=== PATIENT | female | born 1955 | race Caucasian/White ===

== ENCOUNTER 2019-11-29 08:46 | Outpatient (CLI) | payer OTHER, SELFPAY ==
--- NOTE | ~2019-11-29 | MM_ITS ---
EXAMINATION: MM screening [facility] BI w elio HISTORY: Screening TECHNIQUE: Craniocaudal and mediolateral oblique 3-D tomosynthesis images were obtained and synthetic 2-D images were generated. CAD analysis was submitted and interpreted. COMPARISON: Comparison to multiple prior studies sequentially, with oldest reviewed study dated 03/2015. BREAST PARENCHYMAL COMPOSITION: There are scattered areas of fibroglandular density. FINDINGS: There is no evidence of suspicious mass, calcification, or architectural distortion to sugg est malignancy in either breast. There has been no suspicious interval change. IMPRESSION: 1. No mammographic evidence of malignancy. 2. Recommend routine screening mammography in one year. BI-RADS Category 1: Negative Reviewed, dictated and finalized at location A.
== END 2019-11-29 08:47 | disposition home or self-care (01) ==
LOC: ANHIMG 08:52
DX: Z12.31 Encounter for screening mammogram for malignant neoplasm of breast (principal)
CPT/HCPCS: 77063; 77067

== ENCOUNTER 2020-11-30 09:08 | Outpatient (CLI) | payer MEDICARE, OTHER, SELFPAY ==
--- NOTE | ~2020-11-30 | MM_ITS ---
EXAMINATION: MM screening [facility] BI w elio HISTORY: Screening TECHNIQUE: Craniocaudal and mediolateral oblique 3-D tomosynthesis images were obtained and synthetic 2-D images were generated. CAD analysis was submitted and interpreted. COMPARISON: Comparison to multiple prior studies sequentially, with oldest reviewed study dated 03/2015. BREAST PARENCHYMAL COMPOSITION: There are scattered areas of fibroglandular density. FINDINGS: There is no evidence of suspicious mass, calcification, or architectural distortion to sugg est malignancy in either breast. There has been no suspicious interval change. IMPRESSION: 1. No mammographic evidence of malignancy. 2. Recommend routine screening mammography in one year. BI-RADS Category 1: Negative Reviewed, dictated and finalized at location A.
== END 2020-11-30 09:09 | disposition home or self-care (01) ==
LOC: ANHIMG 09:16
DX: Z12.31 Encounter for screening mammogram for malignant neoplasm of breast (principal)
CPT/HCPCS: 77063; 77067

== ENCOUNTER 2021-06-12 10:19 | Outpatient (CLI) | payer MEDICARE, OTHER, SELFPAY ==
--- NOTE | ~2021-06-12 | MR_ITS ---
EXAMINATION: MR breast BI wo/w con INDICATION: High-risk screening for breast cancer TECHNIQUE: Axial VIBRANT pre and dynamic post contrast, Sagittal VIBRANT post contrast, Axial T2 STIR ASSET COMPARISON: 11/25/2017 CONTRAST: Multihance, 20 cc BREAST COMPOSITION: Scattered fibroglandular tissue FINDINGS: RIGHT BREAST: There is minimal background parenchymal enhancement. No abnormal enhancement is present after contrast administration. No pathologically enlarged axillary or internal mammary lymph nodes a re identified. LEFT BREAST: There is minimal background parenchymal enhancement. No abnormal enhancement is present after contrast administration. There is a chronic solitary dilated duct near the left nipple without suspicious change. No pathologically enlarged axillary or internal mammary lymph nodes are identified . IMPRESSION: 1. Unremarkable breast MRI. Recommend continued alternating screening mammogram and MRI. BI-RADS Category 2: Benign finding(s). Reviewed, dictated and finalized at location A.
[2021-06-12 11:54] LABS: Estimated Glomerular Filt Rate > 60
== END 2021-06-12 10:20 | disposition home or self-care (01) ==
DX: N64.59 Other signs and symptoms in breast (principal)
CPT/HCPCS: 77049; A9577; C8908